=== PATIENT | female | born 1970 | race Caucasian/White ===

== ENCOUNTER 2019-03-10 03:11 | Observation (INO) | payer OTHER, SELFPAY ==
[2019-03-10] VITALS (16 sets, daily range): BP systolic 125–207; BP diastolic 68–92; PULSE 55–79; RESP 16–20; TEMP 36.3–36.9; O2SAT 92–100; BMI 33.3; BMI 35.8
--- NOTE | 2019-03-10 03:19 | ED.RN ---
DR PRAKASH WEN FOR DR QUIJANO
[2019-03-10] MEDS: 0.9% Normal Saline 1,000 ML 999 ML IV (03:27)
[2019-03-10] MEDS: Ondansetron 4 MG/2 ML Vial IV ×3 (03:28→21:13)
[2019-03-10] MEDS: Morphine 4 MG/ML Syringe IV ×2 (03:28→03:58)
[2019-03-10] MEDS: Ketorolac 30 MG/ML Syringe IV (03:28)
[2019-03-10 03:33] LABS: Basophil# 0.06 X10^3/uL; Basophil% 0.7 % (0-1); Eosinophil# 0.26 X10^3/uL; Hemoglobin 12.7 g/dl (12.0-15.0); Lymphocyte % 39.7 % (19-41); Mean Corp Hgb Conc 33.4 g/gl (32-36); Mean Corpuscular Hgb 28.3 pg (27.0-32.0); Mean Corpuscular Volume 84.8 fL (81-99); Mean Platelet Vol. 11.4 fl (6.2-12.0); Monocyte# 0.83 X10^3/uL; Monocyte% 9.7 % (0-10); Neutrophil # 3.99 X10^3/uL (2.7-7.7); Neutrophil % 46.7 % (47-70); Platelet Count 211 K/mm3 (150-450); RBC Distribution Width CV 12.4 % (11.6-14.6); RBC Distribution Width SD 37.4 fl (35.1-43.9); Red Blood Count 4.48 M/mm3 (4.2-5.4); White Blood Count 8.6 K/mm3 (4.4-11.0)
[2019-03-10 03:35] LABS: POSITIVE COUNT NO; POSITIVE DIFFERENTIAL NO; POSITIVE MORPHOLOGY NO
[2019-03-10 03:37] LABS: Anion Gap 8 (5-15); BUN 28 mg/dL (7-18); BUN/Creat Ratio 27.5 RATIO (10-20); Calcium,Total 8.9 mg/dL (8.5-10.1); Chloride 107 mmol/L (98-107); Creatinine, Serum 1.02 mg/dL (0.55-1.02); EST Glomerular Filtration Rate 62 mL/min (>60); Est Glom Filt Rate - Afr Amer 75 mL/min (>60); Glucose 110 mg/dL (74-106); Potassium 4.1 mmol/L (3.5-5.1); Sodium Level 142 mmol/L (136-145)
[2019-03-10 03:41] LABS: Bacteria 0 SEEN /hpf (None Seen); Color, Urine Yellow (Yellow); Glucose, Dipstick Normal (Normal); Ketone-Dipstick Negative (Negative); Leukocyte Esterase-Dipstick Negative /ul (Negative); Mucous, Urine 0 SEEN /hpf (<or=2+); Nitrite-Dipstick Negative (Negative); Occult Blood-Urine Negative /ul (Negative); Protein-Dipstick Negative (Negative); Red Blood Cells-Urine 0 SEEN /hpf (0-5); Urine Bilirubin Dipstick Negative (Negative); Urine Clarity Clear (Clear); Urine Urobilinogen Normal (Normal); White Blood Cells 0 SEEN /hpf (0-5)
--- NOTE | 2019-03-10 03:47 | ED.VISSUMM ---
- ER Visit Summary Date of Service: 03/10/19 Chief Complaint: Flank pain History of Present Illness: The patient is a 48 F with left-sided flank pain. The patient was seen in an outside hospital 3 days ago. She was found to have a 6 mm left UVJ calculus with obstruction. Patient is not doing well at home despite taking medication. Physical Examination: Afebrile and vital signs unremarkable except for a blood pressure of 207/92. Alert and oriented. Patient appears uncomfortable. No abdominal distention. Left flank tender. Heart regular rate. No respiratory distress. Skin appears normal. Test Results: CBC and BMP unremarkable. Urinalysis pending. Emergency Department Course and Treatment: Patient was treated with fluids, Toradol, Zofran, and morphine while awaiting results. I did retrieve her imaging from the outside hospital. This showed a 6 mm left UVJ stone. I did not repeat imaging. Labs unremarkable. Urinalysis pending. Repeat blood pressure 156/73. Patient discussed with Dr. Sarabia and will be admitted for further care. Treatment Plan: As above Disposition: Admission Impression: 1. Left ureteral colic This note was generated with StepUpation software. It may contain incorrect words, spelling, and punctuation that were not noted in review of the chart prior to signing ED Disposition - Plan for ED Patient:
[2019-03-10 03:50] LABS: Squamous Epithelial Cells - UA 0-5 SEEN /hpf (5-10)
--- NOTE | 2019-03-10 03:50 | ED.DCSUM_ITS ---
- ER Visit Summary Date of Service: 03/10/19 Chief Complaint: Flank pain History of Present Illness: The patient is a 48 F with left-sided flank pain. The patient was seen in an outside hospital 3 days ago. She was found to have a 6 mm left UVJ calculus with obstruction. Patient is not doing well at home despite taking medication. Physical Examination: Afebrile and vital signs unremarkable except for a blood pressure of 207/92. Alert and oriented. Patient appears uncomfortable. No abdominal distention. Left flank tender. Heart regular rate. No respiratory distress. Skin appears normal. Test Results: CBC and BMP unremarkable. Urinalysis pending. Emergency Department Course and Treatment: Patient was treated with fluids, Toradol, Zofran, and morphine while awaiting results. I did retrieve her imaging from the outside hospital. This showed a 6 mm left UVJ stone. I did not repeat imaging. Labs unremarkable. Urinalysis pending. Repeat blood pressure 156/73. Patient discussed with Dr. Sarabia and will be admitted for further care. Treatment Plan: As above Disposition: Admission Impression: 1. Left ureteral colic This note was generated with Ce[employer] software. It may contain incorrect words, spelling, and punctuation that were not noted in review of the chart prior to signing ED Disposition - Plan for ED Patient:
[2019-03-10] MEDS: Ciprofloxacin 400 MG/200 ML BAG 200 MG IV ×3 (05:00→21:12)
[2019-03-10] MEDS: 0.9% Normal Saline 1,000 ML 100 ML IV ×2 (05:00→22:32)
[2019-03-10] MEDS: Morphine 2 MG/ML Syringe IV ×6 (05:53→21:13)
--- NOTE | 2019-03-10 06:00 | EKG12_ITS ---
Test Reason : AM Blood Pressure : / mmHG Vent. Rate : 052 BPM Atrial Rate : 052 BPM P-R Int : 164 ms QRS Dur : 086 ms QT Int : 444 ms P-R-T Axes : 006 -13 036 degrees QTc Int : 412 ms Sinus bradycardia Otherwise normal ECG Confirmed by SERGIO HICKMAN, MILAN ([id number]), avid editor RONNA VANG ([id number]) on 03/12/2019 1:38:37 PM Referred By: Confirmed By:MILAN HILL MD
--- NOTE | 2019-03-10 07:36 | PCM.HP.STD ---
History of Present Illness Date of Admission: 03/10/19 Chief Complaint: Left obstructing ureteral calculi The patient is a 48 year old female with a 6mm obstructive ureteral calculi presented to the ER with severe pain, nausea and vomiting, no fevers or chills admitted for pain control, plan for stent placement. 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 Denies: Abdominal Pain Genitourinary: Denies: Dysuria Musculoskeletal: Denies: Joint Pain, Joint Tenderness Skin: Denies: Rash, Wounds Neurological: Denies: Numbness, Tingling, Focal weakness Psychiatric: Denies: Anxiety, Depression, Homicidal Ideations, Suicidal Ideations Hematologic/ Lymphatic: Denies: Easy Bruising, Easy Bleeding VTE Information - Inpt Only VTE Present on Admission: No VTE Mechan Device Prophylaxis: SCD's - Physical Exam General: Alert, Oriented x3, Cooperative HEENT: Atraumatic, PERRLA, EOMI, Normocephalic Neck: Supple, No JVD, Negative Carotid Bruits Lungs: Clear to auscultation, Normal air movement Cardiovascular: Regular rate, No murmurs Abdomen: Bowel Sounds Present, Soft, Non Tender Extremities: No edema, Capillary Refill Less than 3 Seconds Skin: No rashes, No breakdown Musculoskeletal: No Tenderness to Palpation of Joints or Extremities Neurological: Cranial nerves II-XII grossly intact Psych/Mental Status: Normal Affect, Appropriate Vital Signs Temp Pulse Resp BP Pulse Ox 98.1 F 56 L 20 H 155/85 H 96 03/10/19 04:19 03/10/19 04:19 03/10/19 04:19 03/10/19 04:19 03/10/19 04:19 Oxygen Delivery Method Room Air Weight: 91.716 kg Body Mass Index (BMI) 35.8 Intake and Output for Last 24 Hours 03/08/19 03/09/19 03/10/19 23:59 23:59 23:59 Intake Total 235 / 235 Output Total 400 / 400 Balance -165 / -165 Laboratory Tests Past 24 Hrs 03/10/19 03/10/19 03/10/19 03:18 03:18 03:18 WBC 8.6 RBC 4.48 Hgb 12.7 Hct 38.0 MCV 84.8 MCH 28.3 MCHC 33.4 RDW 12.4 RDW Differential 37.4 Plt Count 211 MPV 11.4 Immature Gran % (Auto) 0.200 Neut % (Auto) 46.7 L Lymph % (Auto) 39.7 [place] % (Auto) 9.7 Eos % (Auto) 3.0 Baso % (Auto) 0.7 Absolute Neuts (auto) 4.0 Absolute Lymphs (auto) 3.40 Total Counted Not Reportable Sodium 142 Potassium 4.1 Chloride 107 Carbon Dioxide 27.0 Anion Gap 8 BUN 28 H Creatinine 1.02 Estim Creat Clear Calc 56.40 Est GFR (MDRD) Af Amer 75 Est GFR (MDRD) Non-Af 62 BUN/Creatinine Ratio 27.5 H Glucose 110 H Hemoglobin A1c Pending Calcium 8.9 Urine Color Urine Clarity Urine pH Ur Specific Dawson Urine Protein Urine Glucose (UA) Urine Ketones Urine Occult Blood Urine Nitrite Urine Bilirubin Urine Urobilinogen Ur Leukocyte Esterase Urine RBC Urine WBC Ur Squamous Epith Cells Urine Bacteria Urine Mucus 03/10/19 03:35 WBC RBC Hgb Hct MCV MCH MCHC RDW RDW Differential Plt Count MPV Immature Gran % (Auto) Neut % (Auto) Lymph % (Auto) [place] % (Auto) Eos % (Auto) Baso % (Auto) Absolute Neuts (auto) Absolute Lymphs (auto) Total Counted Sodium Potassium Chloride Carbon Dioxide Anion Gap BUN Creatinine Estim Creat Clear Calc Est GFR (MDRD) Af Amer Est GFR (MDRD) Non-Af BUN/Creatinine Ratio Glucose Hemoglobin A1c Calcium Urine Color Yellow Urine Clarity Clear Urine pH 6.0 Ur Specific Dawson 1.020 Urine Protein Negative Urine Glucose (UA) Normal Urine Ketones Negative Urine Occult Blood Negative Urine Nitrite Negative Urine Bilirubin Negative Urine Urobilinogen Normal Ur Leukocyte Esterase Negative Urine RBC 0 SEEN Urine WBC 0 SEEN Ur Squamous Epith Cells 0-5 SEEN Urine Bacteria 0 SEEN Urine Mucus 0 SEEN Assessment/Plan admit to observation for kidney stone and renal colic, nausea vomiting plan for cysto and LEFT stent placement today at noon.
[2019-03-10] MEDS: 0.9% NaCl Peripheral Flush Adult/Peds IV ×4 (07:54→18:24)
[2019-03-10] MEDS: Ketorolac 15 MG/ML Vial IV (10:42)
--- NOTE | 2019-03-10 12:25 | PCM.DC.URO ---
Discharge Diet: Light diet - advance as tolerated Discharge Activity: Return to Normal Activity Instructions: Ureteral Stents Allergies/Adverse Reactions: Allergies No Known Allergies Allergy (Verified 03/10/19 03:31) Medications to take at Discharge Cetirizine HCl [Zyrtec] 10 mg PO QHS 06/30/15 Oxycodone HCl/Acetaminophen [Percocet 5/325] 1 tablet PO Q4H PRN PRN #10 tablet 07/01/15 Ciprofloxacin [Cipro] 500 mg PO BID 03/10/19 Ciprofloxacin [Cipro] 500 mg PO BID #6 tab 03/10/19 Docusate Sodium [Colace] 100 mg PO BID #20 cap 03/10/19 Hydrocodone/Acetaminophen [[place] 5-325 Tablet] 1 ea PO Q4H PRN PRN 5 Days #20 tab 03/10/19 Lisinopril 20 mg PO DAILY 03/10/19 Naproxen [Naprosyn] 500 mg PO BID 03/10/19 The following prescriptions were given: Hydrocodone/Acetaminophen [[place] 5-325 Tablet] 1 ea PO Q4H PRN PRN 5 Days #20 tab PRN Reason: Pain Ciprofloxacin [Cipro] 500 mg PO BID #6 tab Docusate Sodium [Colace] 100 mg PO BID #20 cap Primary Care Physician: Johnnie Green MD [Primary Care Provider] - Test Results: Test results from this visit will be discussed in further detail at your follow-up appointment, if applicable. Please Follow Up With: Javier Sarabia MD When: please call the office
--- NOTE | 2019-03-10 12:42 | PCM.OPRPT ---
Report of Operation Date of Procedure: 03/10/19 Pre-Operative Diagnosis: Left renal colic from left calculi ureteral Post-Operative Diagnosis: Same Surgery/Procedure Performed:: Cystoscopy, left retrograde pyelogram, left stent placement Description of Surgical Findings:: 48-year-old female was admitted to the hospital severe left renal colic from a stone seen on outside hospital CAT scan, with strain all the urine no stone has been seen her past she still having pain in the left side today we will proceed with cystoscopy left stent placement. Patient was taken back to the operating room at the smooth induction of general anesthesia she was placed in dorsolithotomy position the urethra and vaginal area were prepped and draped in usual sterile fashion, went into the bladder with a 21 [place] rigid cystourethroscope, the entire bladder was normal left and right ureteral orifices were identified trigone was normal no tumors or stones within the bladder the urethra was normal I think cannulated the left ureteral orifice with a Glidewire and a Pollack catheter performed a retrograde pyelogram really could not identify a stone clearly on retrograde pyelogram but she did have a dilated left UPJ looking like kidney. After doing a retrograde pyelogram and interpretation of fluoroscopic images I then advanced a stent over the wire left the stent in place pulled the wire and stent coiled in the kidney bladder good position I then drained the bladder and patient anesthetic was reversed she is taken back to PACU good condition. Type of Anesthesia:: General Drains: stent left side - Admit VTE Documentation VTE Present on Admission: No VTE Mechan Device Prophylaxis: SCD's
[2019-03-10 14:25] LABS: Hemoglobin A1c 5.7 % (4.2-6.3)
--- NOTE | 2019-03-10 14:42 | EKG12_ITS ---
Test Reason : POST OP Blood Pressure : / mmHG Vent. Rate : 058 BPM Atrial Rate : 058 BPM P-R Int : 156 ms QRS Dur : 086 ms QT Int : 430 ms P-R-T Axes : 043 -16 054 degrees QTc Int : 422 ms Sinus bradycardia with sinus arrhythmia Otherwise normal ECG When compared with ECG of 10-MAR-2019 05:44, MANUAL COMPARISON REQUIRED, DATA IS UNCONFIRMED Confirmed by RICK MCKENNA ([id number]), primer expeditor and drier LUIS JOY ([id number]) on 03/18/2019 12:53:25 PM Referred By: PRAKASH Confirmed By:ADALBERTO MCKENNA
[2019-03-10] MEDS: proCHLORPERazine 10 MG/2 ML Vial IV (14:52)
[2019-03-11] MEDS: Morphine 2 MG/ML Syringe IV ×3 (00:18→06:13)
[2019-03-11 03:09] VITALS: BP 140/80; PULSE 74; RESP 16; TEMP 36.4; O2SAT 95
--- NOTE | 2019-03-11 07:00 | RAD_ITS ---
STUDY: X-RAY - ABDOMEN/PELVIS REASON FOR EXAM: Female, 48 years old. Abdominal pain. Stent placement. TECHNIQUE: Single AP view of the abdomen / pelvis. COMPARISON: Comparison is made with prior examination dated July 21, 2015. FINDINGS: A left-sided double-J stent catheter has been placed. The proximal tip is in the region of the renal pelvis and the distal tip is in the left side of the bladder. There is a moderate amount of colonic fecal material. There is a 4 mm calcification in the lower pole calyx of the left kidney in keeping with a calculus. Normal soft tissue structures. Prior fusion at the L4-L5 level with disc space narrowing and spondylosis in the lower lumbar spine. RAD/Abdomen Single View IMPRESSION: Status post left double-J stent catheter placement. 4 mm calculus in the lower pole calyx of the left kidney. Electronically Signed: Lacho Torres, at 8:04 EDT , Service support ,
[2019-03-11 07:08] LABS: Hematocrit 36.4 % (37-47); Hemoglobin 12.3 g/dl (12.0-15.0); Mean Corp Hgb Conc 33.8 g/gl (32-36); Mean Corpuscular Hgb 28.3 pg (27.0-32.0); Mean Corpuscular Volume 83.7 fL (81-99); Mean Platelet Vol. 11.9 fl (6.2-12.0); Platelet Count 224 K/mm3 (150-450); RBC Distribution Width CV 12.4 % (11.6-14.6); RBC Distribution Width SD 37.4 fl (35.1-43.9); Red Blood Count 4.35 M/mm3 (4.2-5.4); White Blood Count 13.7 K/mm3 (4.4-11.0)
[2019-03-11 07:09] LABS: Scan Indicated on CBC? Y/N NO
--- NOTE | 2019-03-11 07:25 | PCM.DC.SUM ---
Discharge Date and Diagnosis Date of Admission: 03/10/19 Date of Discharge: 03/11/19 Hospital Course and Treatment Imaging Results: 03/11/19 07:00 KUB [Abdomen Single View] [RAD] Urgent Operations: - - Cystoscopy and left stent placement. Procedures: None Summary of Care Provided: The patient is a 48 year old Female with left kidney stone at left UPJ s/p stent, less nause, no vomiting, still with some pain but clinically stable discharge home today. - Physical Exam General: Alert, Oriented x3, Cooperative HEENT: Atraumatic, PERRLA, EOMI, Normocephalic Neck: Supple, No JVD, Negative Carotid Bruits Lungs: Clear to auscultation, Normal air movement Cardiovascular: Regular rate, No murmurs Abdomen: Bowel Sounds Present, Soft, Non Tender Extremities: No edema, Capillary Refill Less than 3 Seconds Skin: No rashes, No breakdown Musculoskeletal: No Tenderness to Palpation of Joints or Extremities Neurological: Cranial nerves II-XII grossly intact Psych/Mental Status: Normal Affect, Appropriate Vital Signs Temp Pulse Resp BP Pulse Ox 97.5 F L 74 16 140/80 H 95 03/11/19 03:09 03/11/19 03:09 03/11/19 03:09 03/11/19 03:09 03/11/19 03:09 Oxygen Flow Rate (L/min) 2 Oxygen Delivery Method Room Air Weight: 91.716 kg Body Mass Index (BMI) 35.8 Intake and Output for Last 24 Hours 03/09/19 03/10/19 03/11/19 23:59 23:59 23:59 Intake Total 2483 / 2483 1800 / 1800 Output Total 400 / 400 1850 / 1850 Balance 2083 / 2083 -50 / -50 Laboratory Tests Past 24 Hrs 03/10/19 03/11/19 03/11/19 03:18 06:19 06:19 WBC 13.7 H RBC 4.35 Hgb 12.3 Hct 36.4 L MCV 83.7 MCH 28.3 MCHC 33.8 RDW 12.4 RDW Differential 37.4 Plt Count 224 MPV 11.9 Sodium Pending Potassium Pending Chloride Pending Carbon Dioxide Pending Anion Gap Pending BUN Pending Creatinine Pending Est GFR (MDRD) Af Amer Pending Est GFR (MDRD) Non-Af Pending BUN/Creatinine Ratio Pending Glucose Pending Hemoglobin A1c 5.7 Calcium Pending Discharge Diet: Light diet - advance as tolerated Discharge Activity: Return to Normal Activity Home Medications: Medications to take at Discharge Cetirizine HCl [Zyrtec] 10 mg PO QHS 06/30/15 Oxycodone HCl/Acetaminophen [Percocet 5/325] 1 tablet PO Q4H PRN PRN #10 tablet 07/01/15 Ciprofloxacin [Cipro] 500 mg PO BID 03/10/19 Ciprofloxacin [Cipro] 500 mg PO BID #6 tab 03/10/19 Docusate Sodium [Colace] 100 mg PO BID #20 cap 03/10/19 Hydrocodone/Acetaminophen [[place] 5-325 Tablet] 1 ea PO Q4H PRN PRN 5 Days #20 tab 03/10/19 Lisinopril 20 mg PO DAILY 03/10/19 Naproxen [Naprosyn] 500 mg PO BID 03/10/19 Following Prescrptions Were Given to Patient: Hydrocodone/Acetaminophen [[place] 5-325 Tablet] 1 ea PO Q4H PRN PRN 5 Days #20 tab PRN Reason: Pain Ciprofloxacin [Cipro] 500 mg PO BID #6 tab Docusate Sodium [Colace] 100 mg PO BID #20 cap Primary Care Physician: Johnnie Green MD [Primary Care Provider] - Please Follow Up With: Javier Sarabia MD When: please call the office Patient Instructions: Ureteral Stents Medical Necessity - Tobacco Use Smoking Status: Never smoker Tobacco Use: Non-smoker Meaningful Use Info Meaningful Use Diagnoses (Choose all that apply): None applicable
[2019-03-11 07:26] LABS: Anion Gap 8 (5-15); BUN 16 mg/dL (7-18); Calcium,Total 8.9 mg/dL (8.5-10.1); Chloride 111 mmol/L (98-107); Creatinine, Serum 0.89 mg/dL (0.55-1.02); EST Glomerular Filtration Rate 72 mL/min (>60); Est Glom Filt Rate - Afr Amer 87 mL/min (>60); Estimated Creatinine Clearance 64.64 ml/min; Glucose 164 mg/dL (74-106); Potassium 4.2 mmol/L (3.5-5.1); Sodium Level 142 mmol/L (136-145)
[2019-03-11 08:34] VITALS: BP 155/77; PULSE 75; RESP 18; TEMP 36.7; O2SAT 100
== END 2019-03-11 08:40 | disposition home or self-care (01) ==
LOC: ED 03:38 → MS3 04:00
PROVIDERS: Anesthesiology; Admitting Provider Urology; Emergency Provider Emergency Medicine; Family Provider Family Medicine; PCP Family Medicine; Visit Provider Urology
PROC: (CPT 52332; principal; 2019-03-10 11:50)
DX: N20.1 Calculus of ureter (principal); R00.1 Bradycardia, unspecified; I10 Essential (primary) hypertension; J45.909 Unspecified asthma, uncomplicated; G25.81 Restless legs syndrome; E78.00 Pure hypercholesterolemia, unspecified; Z79.899 Other long term (current) drug therapy
CPT/HCPCS: 52332; 36415; 74018; 76000; 80048; 81001; 83036; 85025; 85027; 93005; 96361; 96365; 96366; 96375; 96376; 99218; 99284; J7030; A4216; C1769; G0378; J0744; J2405

== ENCOUNTER → 2019-11-09 15:15 | Outpatient (CLI) | payer OTHER, SELFPAY ==
[2019-03-10 10:50] VITALS: BMI 35.8
[2019-11-09 15:12] VITALS: BP 198/101; PULSE 55; RESP 16; TEMP 36.4; O2SAT 100; BMI 36.8
--- NOTE | 2019-11-09 15:17 | SDCEKG_ITS ---
Test Reason : Blood Pressure : / mmHG Vent. Rate : 053 BPM Atrial Rate : 053 BPM P-R Int : 160 ms QRS Dur : 098 ms QT Int : 426 ms P-R-T Axes : 043 -20 030 degrees QTc Int : 399 ms Sinus bradycardia Moderate voltage criteria for LVH, may be normal variant Borderline ECG Confirmed by RADHA LANDON ([id number]), magazine editor MARVIN SADLER ([id number]) on 11/12/2019 8:24:58 AM Referred By: Terry Pleitez Confirmed By:RADHA LANDON
[2019-11-09 15:40] LABS: Basophil% 0.8 % (0-1); Eosinophils% 1.6 % (0-5); Hematocrit 35.2 % (37-47); Hemoglobin 12.1 g/dL (12.0-15.0); Lymphocyte % 35.3 % (19-41); Mean Corp Hgb Conc 34.4 g/dL (32-36); Mean Corpuscular Volume 87.1 fL (81-99); Mean Platelet Vol. 11.2 fl (6.2-12.0); Monocyte% 7.9 % (0-10); Neutrophil % 54.2 % (47-70); Platelet Count 265 K/mm3 (150-450); RBC Distribution Width SD 40.6 fl (35.1-43.9); Red Blood Count 4.04 M/mm3 (4.2-5.4); White Blood Count 9.3 K/mm3 (4.4-11.0)
[2019-11-09 15:41] LABS: Absolute Lymphocyte Count 3.29 X10^3/uL (0.83-4.51); Absolute Neutrophil Count 5.1 X10^3/uL (2.0-7.7); Basophil# 0.07 X10^3/uL; Eosinophil# 0.15 X10^3/uL; Lymphocyte # 3.29 X10^3/ul (4.0); Monocyte# 0.74 X10^3/uL; NRBC Flagged by Analyzer 0 % (0-5); Neutrophil # 5.05 X10^3/uL (2.7-7.7)
[2019-11-09 16:17] LABS: Anion Gap 6 (5-15); BUN 11 mg/dL (7-18); BUN/Creat Ratio 14.3 RATIO (10-20); Chloride 108 mmol/L (98-107); Creatinine, Serum 0.77 mg/dL (0.55-1.02); EST Glomerular Filtration Rate 85 mL/min (>60); Est Glom Filt Rate - Afr Amer 103 mL/min (>60); Estimated Creatinine Clearance 73.91 ml/min; Glucose 90 mg/dL (74-106); Potassium 3.6 mmol/L (3.5-5.1); Sodium Level 139 mmol/L (136-145)
[2019-11-09 17:35] LABS: Hemoglobin A1c 5.9 % (4.2-6.3)
--- NOTE | 2019-11-10 15:21 | HP.PCM_ITS ---
History and Physical History and Physical Patient Name: Lucila James : 1970 From: SHIMON GUY PA-C DATE OF SURGERY: 12/02/2019 SCHEDULED PROCEDURE: Right unicompartmental knee replacement versus total knee replacement HISTORY OF PRESENT ILLNESS: Preoperative history and physical exam was performed on November 09, 2019. This is a 49-year-old female who is been having ongoing pain for several years with regards to her right knee. She did have a twisting type injury back in 2017. Patient also has a previous history of a knee arthroscopy for meniscus repair. Patient did get an MRI in 2018 which showed degenerative changes in all 3 compartments with the worst being in the medial compartment. There is no specific meniscus tear. Patient underwent previous Euflexxa injections in June 2019. She is now starting to get left knee pain as well over the medial joint line. The pain does keep her up at night. The pain can reach as high as 7/10 with activities of daily living. Patient's pain is increased with going up and down stairs as well as walking. She has difficult time with bathing, leisure activity such as walking. She has tripped/stumbled secondary to the knee pain. Patient has tried ice, heat, elevation with minimal relief. She has tried previous corticosteroid injection without relief in symptoms. [place] did not get much relief from the Euflexxa injections. Patient had a previous knee arthroscopy in 2001. She has tried a brace on and off for the past 2 years with minimal to no relief. She has tried nonsteroidal anti- inflammatories. Patient currently denies any chest pain, shortness of breath, fevers chills, recent infections. Patient has medical history pertinent for asthma, thyroid disease, and hypertension. We are obtaining surgical clearance from patient's primary care physician Dr. Green. After failing conservative measures and discussing treatment options with Dr. Terry Pleitez, the patient does wish to proceed with a right unicompartmental knee replacement versus total knee arthroplasty. REVIEW OF SYSTEMS: ROS: Const: Reports anxiety and change in appetite, but denies anorexia, fever, hard of hearing, vision problems and weight change. CV: Denies chest pain, heart murmur, irregular heartbeat and peripheral vascular disease. Resp: Reports asthma, but denies cough, pneumonia, sleep apnea, SOB, tuberculosis and wheezing. GI: Reports heartburn, but denies constipation, diarrhea, difficulty swallowing, nausea, bloody stools and vomiting. : Urinary: denies incontinence. Musculo: Denies leg swelling, limp, trouble walking and weakness. Skin: Reports tattoo, but denies Raynaud's and history of shingles. Neuro: Reports difficulty with balance, dizziness and numbness/tingling but denies ambulatory dysfunction and tremor. Psych: Reports anxiety, depression, insomnia, mental illness and stress. Jamie/Lymph: Denies anemia, bleeding/bruising tendency and past transfusion. Reviewed, no changes. PAST MEDICAL HISTORY: Advance Care Plan: No Advance Directives Effective Date: 08/18/2018 PMH: Medical Problems: Asthma, Kidney Stones, Thyroid Disease, High Blood Pressure Accidents: None Surgical Hx: Kidney Stones - (2006) [facility] Tubal Ligation - (1993) [facility] Knee Arthroscopy RT - (2001) [facility] Foot Surgery - [facility] Hysterectomy Anesthesia Complications: None Assistive Devices: Glasses Reviewed, no changes. 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 Personal Habits: Cigarette Use: Never Smoked Cigarettes.Alcohol: Has consumed alcohol in the past.Drug Use: Former Illegal Drug User - RX.Enjoy Exercising: Daily - work. Reviewed, no changes. VITALS: Ht: 63 Wt: 205lb Wt k.988 BMI: 36.3 BP: 164/96 Pulse: 70 Resp: 16 T: 98.3 T: 36.8C ALLERGIES: Sulfa MEDICATIONS: Meloxicam 15 mg take 1 tablet by mouth every day, Lisinopril 20 mg 1 tab PO d aily, Hydrochlorothiazide 25 mg 1 by mouth every day, Melatonin 3 mg 1po qhs PRE-OP EXAM: General appearance:NORMAL Other: Eyes: Conjunctivae and lids: NORMAL Pupils: ERR Ears, Nose, Mouth, and Throat: NORMAL Other: Inspection of lips, teeth and gums: NORMAL Other: Neck: Examination of neck: no masses noted. Respiratory: Assessment of respiratory effort: NORMAL Other: Auscultation of lungs: clear to auscultation no wheezes, rhonchi or rales. Cardiovascular: Auscultation of heart: regular rate and rhythm, positive systolic murmur. Exam of carotid arteries: NORMAL Other: Gastrointestinal: Exam of abdomen: soft, nontender, nondistended bowel sounds present. PHYSICAL EXAMINATION: Patient walks with an antalgic gait. Right knee is cool to touch without erythema or signs of infection. There is tenderness to palpation of the medial joint line of the right knee. Moderate effusion. Patient has crepitus with range of motion. Range of motion right knee: 0 of extension and 90 flexion. Correctable varus alignment. Patient also has left knee tenderness to palpation over the medial joint line. Range of motion left knee: 0 of extension to 125 flexion. IMAGING STUDIES: X-rays of the right knee reveal varus alignment with medial joint space narrowing, subchondral sclerosis, osteophyte formation consistent with severe medial compartment osteoarthritis with bony erosions of the medial aspect of the medial tibial plateau. IMPRESSION: 1. Severe right knee osteoarthritis 2. Left knee osteoarthritis 3. Hypertension 4. Asthma 5. Thyroid disease 6. History kidney stones PLAN: Dr. Terry Pleitez did discuss and review with the patient all treatment options including surgical versus nonsurgical options. Patient does wish to proceed with the above-stated procedure. Potential risks, benefits, and complications of the procedure were discussed in detail including but not limited to , infection, nerve and blood vessel damage, persistent pain, numbness, tingling, paresthesias, blood clot, pulmonary embolism, and requirement for possible further surgery. The patient expressed full understanding and has no further questions for the doctor. Patient does agree to proceed with the above-stated procedure and has signed the surgery consent form. This dictation was created using voice recognition software. Phonetic and/or grammatical errors may exist. ___ I have re-examined the patient. There are no clinical changes since date of exam. ___ See progress notes for changes. ___ Dictated on admission Date: Time: Signature:
== END ==
LOC: PAT 12-31 15:24
PROVIDERS: Anesthesiology; Family Provider Family Medicine; PCP Family Medicine; Referring Provider Specialist; Visit Provider Specialist
DX: Z01.818 Encounter for other preprocedural examination (principal)
CPT/HCPCS: 80048; 83036; 85025; 87081; 93005

== ENCOUNTER → 2019-11-09 16:21 | Outpatient (CLI) | payer OTHER, SELFPAY ==
[2019-03-10 10:50] VITALS: BMI 35.8
--- NOTE | 2019-11-09 16:23 | CT_ITS ---
CT of the right lower extremity INDICATION: Preop knee arthroplasty, february protocol TECHNIQUE: Multiple thin section axial CT images of the right lower extremity through the hip joint, knee joint, and ankle joint were obtained and filmed in bone windows. Furthermore, multiple sagittal and coronal reconstructions were performed. FINDINGS: No abnormal soft tissue mass, lymphadenopathy, fluid collection. No acute fracture or dislocation. Moderate knee arthrosis with joint effusion. IMPRESSION: Moderate knee arthrosis with joint effusion. Electronically Signed: Jun Vivar MD at 7:53 EST Tel , Service support , CT/Extremity Lower without Contra
== END ==
LOC: CT 16:22
PROVIDERS: Family Provider Family Medicine; PCP Family Medicine; Referring Provider Specialist; Visit Provider Specialist
DX: M21.161 Varus deformity, not elsewhere classified, right knee (principal)
CPT/HCPCS: 73700